=== PATIENT | female | born 1985 | race Two or more races ===

== ENCOUNTER 2024-05-14 12:16 | Emergency (ER) | payer MEDICAID ==
[~2024-05-14] VITALS: Ht 167.6 cm; Wt 91.0 kg
[2024-05-14 12:44] VITALS: BP 144/101; PULSE 76; RESP 18; TEMP 98.5; O2SAT 100
[2024-05-14 14:29] LABS: BASOPHILS % 0.5 % (0.0-2.0); EOSINOPHILS % 1.4 % (0.0-5.0); HEMATOCRIT. 43.1 % (36.0-48.0); HEMOGLOBIN. 14.1 g/dL (12.0-16.0); LYMPHOCYTES % 37.9 % (20.0-50.0); MEAN CORPUSCULAR HGB CONC 32.7 g/dL (31.0-37.0); MEAN CORPUSCULAR VOLUME 85.5 fL (81.0-99.0); MEAN PLATELET VOLUME 7.2 fl (7.4-10.4); MONOCYTES % 4.8 % (2.0-8.0); NEUTROPHILS % 55.4 % (40.0-76.0); PLATELET 338 x1000/uL (130-400); RED BLOOD CELL COUNT 5.04 mill/uL (4.2-5.4); RED CELL DISTRIBUTION WIDTH 13.6 % (11.6-14.6); WHITE BLOOD COUNT 7.2 x1000/uL (4.5-11.0)
[2024-05-14 14:38] LABS: CHLORIDE 107 mEq/L (98-107); POTASSIUM 3.7 mEq/L (3.5-5.1); SODIUM 138 mEq/L (136-145)
[2024-05-14 14:39] LABS: CALCIUM 9.3 mg/dL (8.7-10.4); CARBON DIOXIDE 25 mEq/L (21-32)
[2024-05-14 14:44] LABS: CREATININE 0.7 mg/dL (0.6-1.0); GLUCOSE 80 mg/dL (70-105); HCG SCREEN NEGATIVE; UREA NITROGEN BLOOD 10 mg/dL (9-23)
[2024-05-14 14:55] LABS: TROPONIN I HIGH SENSITIVITY < 4 ng/L (3.0-34)
[2024-05-14 17:04] LABS: TROPONIN I HIGH SENSITIVITY < 4 ng/L (3.0-34)
[2024-05-14] MEDS ORDERED: IBUP-2030 MT (17:20)
[2024-05-14] MEDS ORDERED: IBUPROFEN 800MG TABLET PO ONE (17:30)
[2024-05-14] MEDS ORDERED: IBUPROFEN 800MG TABLET PO NR (17:45)
== END 2024-05-14 17:35 | disposition home or self-care (01) ==
LOC: ER 12:16
DX: I10 Essential (primary) hypertension (principal); Z90.49 Acquired absence of other specified parts of digestive tract
CPT/HCPCS: 36415; 71045; 80048; 84484; 84703; 85025; 99284